=== PATIENT | female | born 1995 | race Caucasian/White ===

== ENCOUNTER 2023-06-09 17:51 | Inpatient (IN) | payer OTHER ==
[~2023-06-09] VITALS: Ht 160 cm; Wt 54.4 kg
[2023-06-09 21:05] VITALS: BP 103/61; TEMP 97.7; O2SAT 98
[2023-06-09] MEDS ORDERED: CEPH500T PO (22:42)
[2023-06-09] MEDS ORDERED: GABA300S PO (22:44)
[2023-06-09] MEDS ORDERED: MELA1TAB27 PO (22:46)
[2023-06-09] MEDS ORDERED: SENN-261 PO (23:01)
[2023-06-09] MEDS ORDERED: NALO1DIS IM (23:01)
[2023-06-09] MEDS ORDERED: METH100V6 IJ (23:01)
[2023-06-09] MEDS ORDERED: ACET-2030 PO (23:01)
[2023-06-09] MEDS ORDERED: LEVE1000 PO (23:01)
[2023-06-10] MEDS ORDERED: OXYC15TA2 PO (21:36)
[2023-06-10] MEDS ORDERED: OXYC20TA42 PO (21:36)
[2023-06-10] MEDS ORDERED: CEPH500T PO (22:41)
[2023-06-10] MEDS ORDERED: MELA3TAB41 PO (22:51)
[2023-06-10] MEDS ORDERED: GABA-532 PO (22:51)
[2023-06-10] MEDS ORDERED: SENN-291 PO (23:00)
[2023-06-10] MEDS ORDERED: LEVE500T83 PO (23:00)
[2023-06-10] MEDS ORDERED: POLY250017 PO (23:00)
[2023-06-10] MEDS ORDERED: ACET-2030 PO (23:00)
== END 2023-06-09 23:40 | disposition left against medical advice (07) | DRG 862 ==
PROVIDERS: ADMIT Physical Medicine & Rehabilitation Pain Medicine; ATTEND Physical Medicine & Rehabilitation Pain Medicine
DX: Z47.89 Encounter for other orthopedic aftercare (principal); S32.021D Stable burst fracture of second lumbar vertebra, subsequent encounter for fracture with routine healing; Z53.29 Procedure and treatment not carried out because of patient's decision for other reasons; W14.XXXD Fall from tree, subsequent encounter

== ENCOUNTER 2023-06-10 20:59 | Inpatient (IN) | payer OTHER ==
[~2023-06-10] VITALS: Ht 160 cm; Wt 54.9 kg
[2023-06-10 20:00] VITALS: BP 111/65; TEMP 98.6; O2SAT 96
[~2023-06-10 20:59] MED LIST: ACET-2030 PO; CEPH500T PO; GABA300S PO; LEVE1000 PO; MELA1TAB27 PO; METH100V6 IJ; NALO1DIS IM; SENN-261 PO
[2023-06-10] MEDS ORDERED: OXYC20TA42 PO (21:36)
[2023-06-10] MEDS ORDERED: OXYC15TA2 PO (21:36)
[2023-06-10] MEDS ORDERED: CEPH500T PO (22:41)
[2023-06-10] MEDS ORDERED: NALOXONE HCL 0.4 MG/ML AMPUL IV PRN (22:45)
[2023-06-10] MEDS ORDERED: MELA3TAB41 PO (22:51)
[2023-06-10] MEDS ORDERED: GABA-532 PO (22:51)
[2023-06-10] MEDS ORDERED: SENN-291 PO (23:00)
[2023-06-10] MEDS ORDERED: ACET-2030 PO (23:00)
[2023-06-10] MEDS ORDERED: LEVE500T83 PO (23:00)
[2023-06-10] MEDS ORDERED: POLY250017 PO (23:00)
[2023-06-10] MEDS: OXYCODONE HCL 20 MG TAB.SR.12H PO SCH (23:08)
[2023-06-11] MEDS: OXYCODONE HCL 5 MG TABLET PO PRN ×4 (01:32→21:54)
[2023-06-11] MEDS ORDERED: Medication Not On Formulary EA (Oxycodone Hcl 1 TAB) PO PRN (03:15)
[2023-06-11] MEDS ORDERED: ACETAMINOPHEN ES 500 MG TABLET- SA PATIENTS-PAIN ONLY PO PRN (03:15)
[2023-06-11] MEDS ORDERED: NALOXONE 2 MG/2 ML SYRINGE IM SCH (03:15)
[2023-06-11 04:00] VITALS: BP 101/52; TEMP 98; O2SAT 98
[2023-06-11] MEDS ORDERED: Medication Not On Formulary EA (Oxycodone Hcl 1 TAB) PO SCH (04:00)
[2023-06-11] MEDS ORDERED: ACETAMINOPHEN ES 500 MG TABLET- SA PATIENTS-PAIN ONLY PO SCH (06:00)
[2023-06-11] MEDS ORDERED: GABAPENTIN 100 MG CAPSULE PO SCH (06:00)
[2023-06-11] MEDS: METHOCARBAMOL 500 MG TABLET PO PRN (06:22)
[2023-06-11] MEDS: CEphaleXIN 500 MG CAPSULE PO SCH ×3 (06:22→21:39)
[2023-06-11] MEDS: ACETAMINOPHEN ES 500 MG TABLET PO SCH ×3 (06:32→21:38)
[2023-06-11 08:00] VITALS: BP 95/57; TEMP 98; O2SAT 97
[2023-06-11] MEDS: OXYCODONE HCL 20 MG TAB.SR.12H PO SCH ×2 (10:29→20:11)
[2023-06-11] MEDS: SENNOSIDES 1 TABLET PO SCH ×2 (10:30→18:09)
[2023-06-11] MEDS: MIRALAX 17 GM POWD.PACK PO SCH ×2 (10:30→18:08)
[2023-06-11] MEDS: levETIRAcetam 500 MG TABLET PO SCH ×2 (10:30→20:10)
[2023-06-11] MEDS ORDERED: GABA300C PO (12:17)
[2023-06-11] MEDS ORDERED: MELA3TAB41 PO (12:21)
[2023-06-11] MEDS ORDERED: METH-806 PO (12:22)
[2023-06-11] MEDS ORDERED: NALO4SPR NS (12:23)
[2023-06-11] MEDS ORDERED: DICL100G31 TP (12:26)
[2023-06-11] MEDS: MUPIROCIN 2% OINT 22 GM TUBE TP SCH ×2 (13:30→20:15)
[2023-06-11] MEDS: GABAPENTIN 300 MG CAPSULE PO SCH ×2 (13:34→21:40)
[2023-06-11] MEDS ORDERED: ACETAMINOPHEN ES 500 MG TABLET PO PRN (14:00)
[2023-06-11 14:11] LABS: *URINE HCG, QUAL NEGATIVE (NEGATIVE)
[2023-06-11 16:00] VITALS: BP 102/60; TEMP 97.1; O2SAT 98
[2023-06-11] MEDS ORDERED: MELATONIN 3 MG TABLET PO SCH (18:00)
[2023-06-11 20:23] VITALS: BP 99/69; TEMP 97.8; O2SAT 98
[2023-06-11] MEDS: LIDOCAINE 5% PATCH TD SCH (21:38)
[2023-06-12] MEDS: METHOCARBAMOL 500 MG TABLET PO PRN ×2 (01:34→13:56)
[2023-06-12] MEDS: OXYCODONE HCL 5 MG TABLET PO PRN ×3 (04:10→16:34)
[2023-06-12 04:21] VITALS: BP 100/74; TEMP 97.7; O2SAT 96
[2023-06-12] MEDS: CEphaleXIN 500 MG CAPSULE PO SCH ×3 (05:39→21:18)
[2023-06-12] MEDS: GABAPENTIN 300 MG CAPSULE PO SCH ×3 (05:39→21:18)
[2023-06-12] MEDS: ACETAMINOPHEN ES 500 MG TABLET PO SCH ×3 (05:40→21:18)
[2023-06-12] MEDS ORDERED: CEphaleXIN 500 MG CAPSULE PO SCH (06:00)
[2023-06-12 07:38] VITALS: BP 102/42; TEMP 98.2; O2SAT 100
[2023-06-12] MEDS: OXYCODONE HCL 20 MG TAB.SR.12H PO SCH ×2 (08:21→20:22)
[2023-06-12] MEDS: SENNOSIDES 1 TABLET PO SCH ×2 (08:22→16:33)
[2023-06-12] MEDS: levETIRAcetam 500 MG TABLET PO SCH ×2 (08:22→20:20)
[2023-06-12] MEDS: LIDOCAINE 5% PATCH TD SCH ×2 (08:23→20:22)
[2023-06-12] MEDS: ENSURE ENLIVE (VAN) 240 ML LIQUID PO SCH (08:23)
[2023-06-12] MEDS: MIRALAX 17 GM POWD.PACK PO SCH ×2 (08:23→16:34)
[2023-06-12] MEDS: MUPIROCIN 2% OINT 22 GM TUBE TP SCH ×2 (08:24→20:30)
[2023-06-12] MEDS ORDERED: LIDOCAINE 5% PATCH TD SCH (09:00)
[2023-06-12 16:00] VITALS: BP 96/61; TEMP 98.4; O2SAT 100
[2023-06-12] MEDS: BENZOCAINE/MENTH/CETYLPYRD LOZENGE MM PRN (16:34)
[2023-06-12 20:00] VITALS: BP 120/65; TEMP 97.7; O2SAT 98
[2023-06-12] MEDS: MELATONIN 3 MG TABLET PO SCH (21:19)
[2023-06-13] MEDS: OXYCODONE HCL 5 MG TABLET PO PRN ×3 (02:34→16:07)
[2023-06-13 05:07] VITALS: BP 99/61; TEMP 98.6; O2SAT 98
[2023-06-13] MEDS: ACETAMINOPHEN ES 500 MG TABLET PO SCH ×3 (05:14→18:59)
[2023-06-13] MEDS: CEphaleXIN 500 MG CAPSULE PO SCH (05:14)
[2023-06-13] MEDS: GABAPENTIN 300 MG CAPSULE PO SCH ×3 (05:14→21:55)
[2023-06-13 06:27] LABS: BASOPHILS # (AUTO) 0.1 K/UL (0.0-0.2); BASOPHILS % (AUTO) 1.4 % (0.0-2.0); EOSINOPHILS # (AUTO) 0.2 K/uL (0.0-0.7); EOSINOPHILS % (AUTO) 5.9 % (0.0-7.0); HEMATOCRIT 30.3 % (31.2-41.9); HEMOGLOBIN 10.2 g/dL (10.9-14.3); LYMPHOCYTES # (AUTO) 1.3 K/uL (0.8-4.8); LYMPHOCYTES % (AUTO) 33.1 % (20.5-51.5); MEAN CORPUSCULAR HEMOGLOBIN 31.8 uug (24.7-32.8); MEAN CORPUSCULAR HGB CONC 34 g/dL (32.3-35.6); MEAN CORPUSCULAR VOLUME 94.7 fL (75.5-95.3); MONOCYTES # (AUTO) 0.4 K/uL (0.1-1.30); MONOCYTES % (AUTO) 11.4 % (0.0-11.0); NEUTROPHILS # (AUTO) 1.9 K/uL (1.8-8.9); NEUTROPHILS % (AUTO) 48.2 % (38.5-71.5); PLATELET COUNT (AUTO) 351 K/uL (179-408); RED CELL DISTRIBUTION WIDTH 13.3 % (12.3-17.7); WHITE BLOOD COUNT (AUTO) 3.9 K/uL (3.8-11.8)
[2023-06-13 06:53] LABS: DIFFERENTIAL COMMENT 1
[2023-06-13 07:02] LABS: ALBUMIN 3.1 g/dL (3.4-5.0); BILIRUBIN,TOTAL 0.1 mg/dL (0.2-1.0); CALCIUM 9.1 mg/dL (8.5-10.1); CREATININE 0.7 mg/dL (0.6-1.3); POTASSIUM 4.1 mmol/L (3.5-5.1); TOTAL PROTEIN, SERUM 6.8 g/dL (6.4-8.2)
[2023-06-13] MEDS: SENNOSIDES 1 TABLET PO SCH ×2 (09:03→17:09)
[2023-06-13] MEDS: levETIRAcetam 500 MG TABLET PO SCH ×2 (09:03→21:05)
[2023-06-13] MEDS: OXYCODONE HCL 20 MG TAB.SR.12H PO SCH ×2 (09:03→21:05)
[2023-06-13] MEDS: MIRALAX 17 GM POWD.PACK PO SCH ×2 (09:03→17:10)
[2023-06-13] MEDS: ENSURE ENLIVE (VAN) 240 ML LIQUID PO SCH (09:04)
[2023-06-13] MEDS: MUPIROCIN 2% OINT 22 GM TUBE TP SCH ×2 (09:04→21:11)
[2023-06-13 20:10] VITALS: BP 108/76; TEMP 97.7; O2SAT 99
[2023-06-13] MEDS: LIDOCAINE 5% PATCH TD SCH (21:05)
[2023-06-13] MEDS ORDERED: diphenhydrAMINE 25 MG CAP PO ONE (21:45)
[2023-06-13] MEDS ORDERED: METOCLOPRAMIDE HCL 10 MG TABLET PO ONE (21:45)
[2023-06-13] MEDS: MELATONIN 3 MG TABLET PO SCH (21:55)
[2023-06-13] MEDS: BENZOCAINE/MENTH/CETYLPYRD LOZENGE MM PRN (23:22)
[2023-06-14] MEDS: OXYCODONE HCL 5 MG TABLET PO PRN ×5 (00:36→19:03)
[2023-06-14] MEDS: GABAPENTIN 300 MG CAPSULE PO SCH ×3 (05:31→21:33)
[2023-06-14] MEDS: ACETAMINOPHEN ES 500 MG TABLET PO SCH ×3 (05:31→21:33)
[2023-06-14 08:00] VITALS: BP 104/65; TEMP 98.5; O2SAT 100
[2023-06-14] MEDS: levETIRAcetam 500 MG TABLET PO SCH ×2 (08:16→21:33)
[2023-06-14] MEDS: SENNOSIDES 1 TABLET PO SCH ×2 (08:17→16:38)
[2023-06-14] MEDS: FERROUS SULFATE 325 MG TABEC PO SCH (08:17)
[2023-06-14] MEDS: ASCORBIC ACID 500 MG TABLET PO SCH (08:17)
[2023-06-14] MEDS: OXYCODONE HCL 20 MG TAB.SR.12H PO SCH ×2 (08:17→21:30)
[2023-06-14] MEDS: MIRALAX 17 GM POWD.PACK PO SCH ×2 (08:17→16:37)
[2023-06-14] MEDS: ENSURE ENLIVE (VAN) 240 ML LIQUID PO SCH (08:17)
[2023-06-14] MEDS: MUPIROCIN 2% OINT 22 GM TUBE TP SCH ×2 (08:18→21:33)
[2023-06-14] MEDS ORDERED: VITAMINS A AND D OINT 42 GM TUBE TP PRN (13:15)
[2023-06-14] MEDS: CEphaleXIN 500 MG CAPSULE PO SCH ×2 (14:21→21:32)
[2023-06-14 16:00] VITALS: BP 110/63; TEMP 98.8; O2SAT 98
[2023-06-14] MEDS: VITAMINS A AND D 5 GM UD PKT TP PRN (16:38)
[2023-06-14 20:15] VITALS: BP 109/84; TEMP 98.4; O2SAT 100
[2023-06-14] MEDS: LIDOCAINE 5% PATCH TD SCH (21:34)
[2023-06-14] MEDS: MELATONIN 3 MG TABLET PO SCH (21:34)
[2023-06-15 00:25] VITALS: BP 107/53; TEMP 98.4; O2SAT 98
[2023-06-15] MEDS: OXYCODONE HCL 5 MG TABLET PO PRN ×5 (00:29→21:39)
[2023-06-15] MEDS: BENZOCAINE/MENTH/CETYLPYRD LOZENGE MM PRN ×3 (01:05→21:28)
[2023-06-15 04:22] VITALS: BP 96/60; TEMP 97.8; O2SAT 99
[2023-06-15] MEDS: ACETAMINOPHEN ES 500 MG TABLET PO SCH ×3 (05:41→21:28)
[2023-06-15] MEDS: CEphaleXIN 500 MG CAPSULE PO SCH ×3 (05:41→21:28)
[2023-06-15] MEDS: GABAPENTIN 300 MG CAPSULE PO SCH ×3 (05:41→21:28)
[2023-06-15 07:41] VITALS: BP 104/79; TEMP 97.8; O2SAT 94
[2023-06-15] MEDS: ASCORBIC ACID 500 MG TABLET PO SCH (09:04)
[2023-06-15] MEDS: MIRALAX 17 GM POWD.PACK PO SCH ×2 (09:04→17:27)
[2023-06-15] MEDS: levETIRAcetam 500 MG TABLET PO SCH ×2 (09:04→20:33)
[2023-06-15] MEDS: FERROUS SULFATE 325 MG TABEC PO SCH (09:04)
[2023-06-15] MEDS: ENSURE ENLIVE (VAN) 240 ML LIQUID PO SCH (09:04)
[2023-06-15] MEDS: MUPIROCIN 2% OINT 22 GM TUBE TP SCH (09:04)
[2023-06-15] MEDS: SENNOSIDES 1 TABLET PO SCH ×2 (09:04→17:27)
[2023-06-15] MEDS: OXYCODONE HCL 20 MG TAB.SR.12H PO SCH ×2 (09:11→20:34)
[2023-06-15] MEDS: METHYL SALICYLATE/MENTHOL CREAM 28 GM TUBE TOP PRN ×2 (13:05→18:45)
[2023-06-15 15:10] VITALS: BP 103/63; TEMP 98.3; O2SAT 97
[2023-06-15] MEDS: VITAMINS A AND D 5 GM UD PKT TP PRN (15:18)
[2023-06-15] MEDS: METHOCARBAMOL 500 MG TABLET PO PRN (18:53)
[2023-06-15 20:00] VITALS: BP 98/56; TEMP 97.4; O2SAT 96
[2023-06-15] MEDS: LIDOCAINE 5% PATCH TD SCH (20:33)
[2023-06-15] MEDS: MELATONIN 3 MG TABLET PO SCH (20:33)
[2023-06-16] MEDS: METHOCARBAMOL 500 MG TABLET PO PRN ×2 (01:18→18:34)
[2023-06-16] MEDS: OXYCODONE HCL 5 MG TABLET PO PRN ×5 (02:41→21:38)
[2023-06-16 04:08] VITALS: BP 90/48; TEMP 97.8; O2SAT 96
[2023-06-16] MEDS: GABAPENTIN 300 MG CAPSULE PO SCH ×3 (05:20→17:12)
[2023-06-16] MEDS: ACETAMINOPHEN ES 500 MG TABLET PO SCH ×3 (05:21→21:27)
[2023-06-16 08:00] VITALS: BP 110/62; TEMP 98; O2SAT 98
[2023-06-16] MEDS: SENNOSIDES 1 TABLET PO SCH ×2 (08:36→17:12)
[2023-06-16] MEDS: FERROUS SULFATE 325 MG TABEC PO SCH (08:36)
[2023-06-16] MEDS: levETIRAcetam 500 MG TABLET PO SCH ×2 (08:36→20:30)
[2023-06-16] MEDS: MIRALAX 17 GM POWD.PACK PO SCH ×2 (08:36→17:12)
[2023-06-16] MEDS: OXYCODONE HCL 20 MG TAB.SR.12H PO SCH ×2 (08:36→20:31)
[2023-06-16] MEDS: ASCORBIC ACID 500 MG TABLET PO SCH (08:36)
[2023-06-16] MEDS: ENSURE ENLIVE (VAN) 240 ML LIQUID PO SCH (08:42)
[2023-06-16 16:12] VITALS: BP 102/75; TEMP 98; O2SAT 95
[2023-06-16 20:03] VITALS: BP 103/76; TEMP 97.6; O2SAT 96
[2023-06-16] MEDS: MELATONIN 3 MG TABLET PO SCH (20:31)
[2023-06-16] MEDS: LIDOCAINE 5% PATCH TD SCH (20:31)
[2023-06-16] MEDS: BENZOCAINE/MENTH/CETYLPYRD LOZENGE MM PRN (21:38)
[2023-06-17] MEDS: METHOCARBAMOL 500 MG TABLET PO PRN ×2 (01:01→20:32)
[2023-06-17] MEDS: OXYCODONE HCL 5 MG TABLET PO PRN ×5 (01:53→23:25)
[2023-06-17 04:20] VITALS: BP 107/51; TEMP 98; O2SAT 99
[2023-06-17] MEDS: ACETAMINOPHEN ES 500 MG TABLET PO SCH ×3 (06:04→21:51)
[2023-06-17 08:00] VITALS: BP 102/64; TEMP 98; O2SAT 98
[2023-06-17] MEDS: levETIRAcetam 500 MG TABLET PO SCH ×2 (08:41→20:31)
[2023-06-17] MEDS: MIRALAX 17 GM POWD.PACK PO SCH ×2 (08:41→16:27)
[2023-06-17] MEDS: FERROUS SULFATE 325 MG TABEC PO SCH (08:41)
[2023-06-17] MEDS: ASCORBIC ACID 500 MG TABLET PO SCH (08:42)
[2023-06-17] MEDS: SENNOSIDES 1 TABLET PO SCH ×2 (08:42→16:27)
[2023-06-17] MEDS: GABAPENTIN 300 MG CAPSULE PO SCH ×3 (08:42→16:27)
[2023-06-17] MEDS: OXYCODONE HCL 20 MG TAB.SR.12H PO SCH ×2 (08:42→20:32)
[2023-06-17] MEDS: ENSURE ENLIVE (VAN) 240 ML LIQUID PO SCH (08:44)
[2023-06-17 16:00] VITALS: BP 99/64; TEMP 98; O2SAT 100
[2023-06-17 20:00] VITALS: BP 119/76; TEMP 98.5; O2SAT 98
[2023-06-17] MEDS: LIDOCAINE 5% PATCH TD SCH (20:32)
[2023-06-17] MEDS: MELATONIN 3 MG TABLET PO SCH (21:53)
[2023-06-18] MEDS: OXYCODONE HCL 5 MG TABLET PO PRN ×3 (03:51→15:13)
[2023-06-18 04:00] VITALS: BP 99/64; TEMP 97.9; O2SAT 100
[2023-06-18] MEDS: ACETAMINOPHEN ES 500 MG TABLET PO SCH ×3 (06:01→22:15)
[2023-06-18 07:59] VITALS: BP 101/63; TEMP 98.1; O2SAT 99
[2023-06-18] MEDS: ASCORBIC ACID 500 MG TABLET PO SCH (08:32)
[2023-06-18] MEDS: GABAPENTIN 300 MG CAPSULE PO SCH ×3 (08:32→17:02)
[2023-06-18] MEDS: levETIRAcetam 500 MG TABLET PO SCH ×2 (08:32→20:32)
[2023-06-18] MEDS: SENNOSIDES 1 TABLET PO SCH ×2 (08:32→17:02)
[2023-06-18] MEDS: FERROUS SULFATE 325 MG TABEC PO SCH (08:32)
[2023-06-18] MEDS: MIRALAX 17 GM POWD.PACK PO SCH ×2 (08:32→17:03)
[2023-06-18] MEDS: OXYCODONE HCL 20 MG TAB.SR.12H PO SCH ×2 (08:36→20:32)
[2023-06-18] MEDS: ENSURE ENLIVE (VAN) 240 ML LIQUID PO SCH (08:36)
[2023-06-18] MEDS: METHYL SALICYLATE/MENTHOL CREAM 28 GM TUBE TOP PRN (11:22)
[2023-06-18 15:09] VITALS: BP 118/61; TEMP 97.7; O2SAT 98
[2023-06-18] MEDS: METHOCARBAMOL 500 MG TABLET PO PRN (17:02)
[2023-06-18 20:00] VITALS: BP 112/82; TEMP 98.2; O2SAT 97
[2023-06-18] MEDS: LIDOCAINE 5% PATCH TD SCH (20:32)
[2023-06-18] MEDS: MELATONIN 3 MG TABLET PO SCH (20:32)
[2023-06-19] MEDS: OXYCODONE HCL 5 MG TABLET PO PRN ×5 (02:18→23:15)
[2023-06-19 04:00] VITALS: BP 106/73; TEMP 98.3; O2SAT 99
[2023-06-19] MEDS: ACETAMINOPHEN ES 500 MG TABLET PO SCH ×3 (05:40→22:32)
[2023-06-19] MEDS: ENSURE ENLIVE (VAN) 240 ML LIQUID PO SCH (09:10)
[2023-06-19] MEDS: FERROUS SULFATE 325 MG TABEC PO SCH (09:10)
[2023-06-19] MEDS: MIRALAX 17 GM POWD.PACK PO SCH ×2 (09:10→16:08)
[2023-06-19] MEDS: ASCORBIC ACID 500 MG TABLET PO SCH (09:11)
[2023-06-19] MEDS: SENNOSIDES 1 TABLET PO SCH ×2 (09:11→16:08)
[2023-06-19] MEDS: GABAPENTIN 300 MG CAPSULE PO SCH ×3 (09:11→16:08)
[2023-06-19] MEDS: levETIRAcetam 500 MG TABLET PO SCH ×2 (09:11→21:42)
[2023-06-19] MEDS: OXYCODONE HCL 20 MG TAB.SR.12H PO SCH ×3 (09:55→21:43)
[2023-06-19 10:00] VITALS: TEMP 98.1
[2023-06-19 12:00] VITALS: TEMP 97.4
[2023-06-19] MEDS: METHYL SALICYLATE/MENTHOL CREAM 28 GM TUBE TOP PRN (16:08)
[2023-06-19] MEDS: METHOCARBAMOL 500 MG TABLET PO PRN (16:08)
[2023-06-19 16:19] VITALS: TEMP 97.2
[2023-06-19] MEDS: MELATONIN 3 MG TABLET PO SCH (21:43)
[2023-06-19] MEDS: LIDOCAINE 5% PATCH TD SCH (21:44)
[2023-06-20] MEDS: METHOCARBAMOL 500 MG TABLET PO PRN ×2 (03:11→21:48)
[2023-06-20] MEDS: OXYCODONE HCL 5 MG TABLET PO PRN ×3 (04:14→16:20)
[2023-06-20] MEDS: ACETAMINOPHEN ES 500 MG TABLET PO SCH ×3 (06:43→21:23)
[2023-06-20] MEDS: FERROUS SULFATE 325 MG TABEC PO SCH (08:53)
[2023-06-20] MEDS: OXYCODONE HCL 20 MG TAB.SR.12H PO SCH ×2 (08:54→20:44)
[2023-06-20] MEDS: levETIRAcetam 500 MG TABLET PO SCH ×2 (08:55→20:44)
[2023-06-20] MEDS: GABAPENTIN 300 MG CAPSULE PO SCH ×3 (08:56→16:19)
[2023-06-20] MEDS: ASCORBIC ACID 500 MG TABLET PO SCH (08:56)
[2023-06-20] MEDS: MIRALAX 17 GM POWD.PACK PO SCH ×2 (08:56→16:21)
[2023-06-20] MEDS: SENNOSIDES 1 TABLET PO SCH ×2 (10:07→16:19)
[2023-06-20] MEDS: ENSURE ENLIVE (VAN) 240 ML LIQUID PO SCH (10:08)
[2023-06-20 16:00] VITALS: BP 102/63; TEMP 98.2; O2SAT 98
[2023-06-20] MEDS: MELATONIN 3 MG TABLET PO SCH (20:43)
[2023-06-20] MEDS: LIDOCAINE 5% PATCH TD SCH (20:44)
[2023-06-21] MEDS: OXYCODONE HCL 5 MG TABLET PO PRN ×5 (01:43→23:16)
[2023-06-21] MEDS: METHYL SALICYLATE/MENTHOL CREAM 28 GM TUBE TOP PRN (01:48)
[2023-06-21] MEDS: BENZOCAINE/MENTH/CETYLPYRD LOZENGE MM PRN ×2 (03:15→21:45)
[2023-06-21] MEDS: ACETAMINOPHEN ES 500 MG TABLET PO SCH ×3 (05:40→23:04)
[2023-06-21 08:20] VITALS: BP 107/68; TEMP 97.6; O2SAT 98
[2023-06-21] MEDS: MIRALAX 17 GM POWD.PACK PO SCH ×2 (08:54→17:25)
[2023-06-21] MEDS: OXYCODONE HCL 20 MG TAB.SR.12H PO SCH ×2 (08:54→21:44)
[2023-06-21] MEDS: GABAPENTIN 300 MG CAPSULE PO SCH ×3 (08:54→17:25)
[2023-06-21] MEDS: FERROUS SULFATE 325 MG TABEC PO SCH (08:54)
[2023-06-21] MEDS: ASCORBIC ACID 500 MG TABLET PO SCH (08:54)
[2023-06-21] MEDS: SENNOSIDES 1 TABLET PO SCH ×2 (08:54→17:25)
[2023-06-21] MEDS: ENSURE ENLIVE (VAN) 240 ML LIQUID PO SCH (08:55)
[2023-06-21] MEDS: levETIRAcetam 500 MG TABLET PO SCH ×2 (09:16→21:44)
[2023-06-21] MEDS: METHOCARBAMOL 500 MG TABLET PO PRN (12:27)
[2023-06-21 16:05] VITALS: BP 129/72; TEMP 97.6; O2SAT 98
[2023-06-21 20:16] VITALS: BP 104/63; TEMP 97.8; O2SAT 98
[2023-06-21] MEDS: MELATONIN 3 MG TABLET PO SCH (21:00)
[2023-06-21] MEDS: LIDOCAINE 5% PATCH TD SCH (21:44)
[2023-06-22] MEDS: OXYCODONE HCL 5 MG TABLET PO PRN ×2 (04:27→13:41)
[2023-06-22 04:45] VITALS: BP 107/72; TEMP 97.7; O2SAT 99
[2023-06-22] MEDS: ACETAMINOPHEN ES 500 MG TABLET PO SCH ×2 (06:25→13:40)
[2023-06-22 07:53] VITALS: BP 98/76; TEMP 98.4; O2SAT 98
[2023-06-22] MEDS: ASCORBIC ACID 500 MG TABLET PO SCH (09:00)
[2023-06-22] MEDS: GABAPENTIN 300 MG CAPSULE PO SCH ×2 (09:00→13:40)
[2023-06-22] MEDS: levETIRAcetam 500 MG TABLET PO SCH (09:00)
[2023-06-22] MEDS: MIRALAX 17 GM POWD.PACK PO SCH (09:00)
[2023-06-22] MEDS: FERROUS SULFATE 325 MG TABEC PO SCH (09:00)
[2023-06-22] MEDS: SENNOSIDES 1 TABLET PO SCH (09:00)
[2023-06-22] MEDS: ENSURE ENLIVE (VAN) 240 ML LIQUID PO SCH (09:00)
[2023-06-22] MEDS: OXYCODONE HCL 20 MG TAB.SR.12H PO SCH (09:01)
[2023-06-22] MEDS: METHOCARBAMOL 500 MG TABLET PO PRN (11:48)
== END 2023-06-22 14:55 | disposition home or self-care (01) | DRG 862 ==
PROVIDERS: ADMIT Physical Medicine & Rehabilitation Pain Medicine; ATTEND Physical Medicine & Rehabilitation Pain Medicine
DX: S32.021D Stable burst fracture of second lumbar vertebra, subsequent encounter for fracture with routine healing (principal); E44.1 Mild protein-calorie malnutrition; L02.212 Cutaneous abscess of back [any part, except buttock and flank]; M96.842 Postprocedural seroma of a musculoskeletal structure following a musculoskeletal system procedure; Z47.89 Encounter for other orthopedic aftercare; S02.119D Unspecified fracture of occiput, subsequent encounter for fracture with routine healing; S02.19XD Other fracture of base of skull, subsequent encounter for fracture with routine healing; S06.0XAD Concussion with loss of consciousness status unknown, subsequent encounter; W14.XXXD Fall from tree, subsequent encounter; B95.8 Unspecified staphylococcus as the cause of diseases classified elsewhere; T81.49XD Infection following a procedure, other surgical site, subsequent encounter; D50.9 Iron deficiency anemia, unspecified; S06.30AD Unspecified focal traumatic brain injury with loss of consciousness status unknown, subsequent encounter; S30.1XXD Contusion of abdominal wall, subsequent encounter; F41.9 Anxiety disorder, unspecified; D75.839 Thrombocytosis, unspecified
CPT/HCPCS: 36415; 83550; 84703; 85025; 97535-GO-CO; A4663; A6209; A6213; A9150; J8597; Q0163